=== PATIENT | female | born 1960 | race Caucasian/White ===

== ENCOUNTER 2018-07-06 14:30 | Outpatient (CLI) | payer OTHER | END 2018-07-06 14:31 | disposition home or self-care (01) | LOC: BICMAMMO 14:30 | PROVIDERS: ATTEND Internal Medicine | DX: Z12.31 Encounter for screening mammogram for malignant neoplasm of breast (principal); N63.10 Unspecified lump in the right breast, unspecified quadrant | CPT/HCPCS: 77063; 77067 ==

== ENCOUNTER 2018-07-09 09:51 | Outpatient (CLI) | payer OTHER ==
--- NOTE | 2018-07-09 11:25 | ULT ---
RIGHT BREAST ULTRASOUND: Date: 07/09/18 HISTORY: Abnormal mammogram of 07/06/18. FINDINGS: Sonographic evaluation of the right upper outer breast demonstrates a 3.0 cm hypoechoic lesion withou t shadowing between the 10 and 11 o'clock positions of the right breast, likely corresponding to the mammographic abnormality. IMPRESSION: BIRADS Category 3 - Probably benign findings. A follow-up right diagnostic mammogram and right breast ultrasound is recommended in 6 months. The facility will notify patient of need for additional imaging services. POS: OFF
== END 2018-07-09 09:52 | disposition home or self-care (01) ==
LOC: BICULT 09:51
PROVIDERS: ATTEND Internal Medicine
DX: N63.10 Unspecified lump in the right breast, unspecified quadrant (principal)

== ENCOUNTER 2019-02-13 08:44 | Outpatient (CLI) | payer OTHER ==
--- NOTE | 2019-02-13 09:34 | MMO ---
Right Breast MAMMO Unilat Diag [facility]. CLINICAL HISTORY: Patient is 58 years old and is seen for follow-up at short-interval from prior study. The patient has no family history of breast cancer. The patient has no personal history of cancer. VIEWS: The views performed were: right craniocaudal with tomosynthesis; right mediolateral oblique with tomosynthesis; and right mediolateral with tomosynthesis. FILMS COMPARED: The present examination has been compared to prior imaging studies performed at [facility] on 03/06/2009, 07/31/2015, 07/06/2018 and 02/13/2019. MAMMOGRAM FINDINGS: There are scattered fibroglandular densities. There are benign appearing calcifications in the right breast. The nodule in the right upper outer breast is again seen and is a cyst on US. There are no suspicious masses, suspicious calcifications, or new areas of architectural distortion. IMPRESSION: THERE IS NO MAMMOGRAPHIC EVIDENCE OF MALIGNANCY. A ROUTINE FOLLOW-UP MAMMOGRAM IN 5 MONTHS IS RECOMMENDED. THE RESULTS OF THIS EXAM WERE SENT TO THE PATIENT. ACR BI-RADS Category 2 - Benign finding MAMMOGRAPHY NOTE: 1. A negative mammogram report should not delay a biopsy if a dominant of clinically suspicious mass is present. 2. Approximately 10% to 15% of breast cancers are not detected by mammography. 3. Adenosis and dense breasts may obscure an underlying neoplasm. Reported by: SUSANNE GARCIA MD Electonically Signed: [id number]
--- NOTE | 2019-02-13 11:22 | ULT ---
RIGHT BREAST ULTRASOUND: HISTORY: Followup right breast nodule. FINDINGS: Correlation is made with the mammogram of today and comparison made with the ultrasound of 07/09/2018 . Sonographic evaluation of the right upper outer breast demonstrates a 5 mm anechoic lesion with poste rior enhancement within the 10 and 11 o'clock positions consistent with cysts. IMPRESSION: BIRADS category 2 - benign findings. Return to annual mammographic screening due in June 2019. POS: OFF
== END 2019-02-13 08:45 | disposition home or self-care (01) ==
LOC: BICMAMMO 08:44
PROVIDERS: ATTEND Internal Medicine
DX: R92.8 Other abnormal and inconclusive findings on diagnostic imaging of breast (principal)
CPT/HCPCS: G0279

== ENCOUNTER 2020-08-19 13:21 | Outpatient (CLI) | payer BC ==
--- NOTE | 2020-08-19 14:00 | MMO ---
Bilateral MAMMO Bilat Screen [facility]. CLINICAL HISTORY: Patient is 59 years old and is seen for screening. The patient has no family history of breast cancer. The patient has no personal history of cancer. VIEWS: The views performed were: bilateral craniocaudal with tomosynthesis and bilateral mediolateral oblique with tomosynthesis. FILMS COMPARED: The present examination has been compared to prior imaging studies performed at [facility] on 07/31/2015, 07/06/2018 and 02/13/2019. This study has been interpreted with the assistance of computer-aided detection. MAMMOGRAM FINDINGS: There are scattered fibroglandular densities. Benign calcifications are noted bilaterally. There are no suspicious masses, suspicious calcifications, or new areas of architectural distortion. IMPRESSION: THERE IS NO MAMMOGRAPHIC EVIDENCE OF MALIGNANCY. A ROUTINE FOLLOW-UP MAMMOGRAM IN 1 YEAR IS RECOMMENDED. THE RESULTS OF THIS EXAM WERE SENT TO THE PATIENT. ACR BI-RADS Category 2 - Benign finding MAMMOGRAPHY NOTE: 1. A negative mammogram report should not delay a biopsy if a dominant of clinically suspicious mass is present. 2. Approximately 10% to 15% of breast cancers are not detected by mammography. 3. Adenosis and dense breasts may obscure an underlying neoplasm. Reported by: SUSANNE GARCIA MD Electonically Signed: [id number]
== END 2020-08-19 13:22 | disposition home or self-care (01) ==
LOC: BICMAMMO 13:21
PROVIDERS: ATTEND Internal Medicine
DX: Z12.31 Encounter for screening mammogram for malignant neoplasm of breast (principal)
CPT/HCPCS: 77063; 77067

== ENCOUNTER 2021-07-03 10:16 | Inpatient (IN) | payer BC ==
[2021-07-03] MEDS ORDERED: Cyclobenzaprine 10 MG TAB ONE (10:58)
[2021-07-03] MEDS ORDERED: Ketorolac Tromethamine 30 MG/ML VIAL ONE (10:58)
[2021-07-03] MEDS ORDERED: Diazepam 10 MG/2 ML SYRINGE ONE (11:47)
[2021-07-03] MEDS ORDERED: Dexamethasone 10 MG/ML VIAL ONE (11:47)
[2021-07-03] MEDS ORDERED: Diazepam 5 MG TAB ONE (11:48)
[2021-07-03] MEDS ORDERED: Morphine 4 MG/ML VIAL ONE (12:54)
[2021-07-03] MEDS ORDERED: Ketamine 50 MG/ML (10ML VIAL) ONE (13:50)
[2021-07-03] MEDS: HYDROcodone/Acetaminophen 5/325 mg Tablet PO PRN (19:17)
[2021-07-03] MEDS: Pregabalin 50 MG CAP PO SCH (19:53)
[2021-07-03] MEDS: hydrALAZINE 20 MG/ML VIAL SLOW IVP PRN (19:53)
[2021-07-03] MEDS: Morphine 4 MG/ML VIAL SLOW IVP PRN ×2 (19:55→22:12)
[2021-07-03] MEDS: Methocarbamol 500 MG TAB PO PRN (22:29)
[2021-07-03 23:30] LABS: SARS-CoV-2 PCR by NAA Not Detected (NotDetected)
[2021-07-04] MEDS: Morphine 4 MG/ML VIAL SLOW IVP PRN ×7 (01:08→20:54)
[2021-07-04] MEDS: HYDROcodone/Acetaminophen 5/325 mg Tablet PO PRN ×2 (01:54→08:22)
[2021-07-04] MEDS ORDERED: HYDROcodone/Acetaminophen 5/325 mg Tablet PO SCH (02:20)
[2021-07-04 05:39] LABS: #Lymphocytes 2.2 thou/uL (1.20-3.40); #Monocytes 0.5 thou/uL (0.11-0.59); #Neutrophils 4.6 thou/uL (1.40-6.50); %Basophils 0.1 % (0.0-1.0); %Eosinophils 0.2 % (0.0-10.0); %Lymphocytes 29.9 % (21.0-51.0); %Monocytes 6.9 % (0.0-10.0); %Neutrophils 62.9 % (42.0-75.0); Hemoglobin 14.2 g/dL (12.0-16.0); Mean Corpuscular HGB CONC 33.8 g/dL (32.0-36.0); Mean Corpuscular Hemoglobin 34.4 pg (27.0-31.0); Platelet Count 308 thou/uL (130-400); RBC Distribution Width 11.8 % (11.5-14.5); Red Blood Cell (RBC) Count 4.11 mill/uL (4.20-5.40); White Blood Cell (WBC) Count 7.3 thou/uL (4.8-10.8)
[2021-07-04 06:08] LABS: Anion Gap 11 mmol/L (10-20); BUN (Urea Nitrogen) 10 mg/dL (9.8-20.1); Calc. Creatinine Clearance 110 mL/min (70-130); Calcium 9.6 mg/dL (7.8-10.44); Carbon Dioxide 25 mmol/L (22-29); Chloride 105 mmol/L (98-107); Glucose 96 mg/dL (70-105); Potassium 3.9 mmol/L (3.5-5.1); Sodium 137 mmol/L (136-145)
[2021-07-04] MEDS ORDERED: ALPRAZolam 0.5 MG TAB PO PRN (08:15)
[2021-07-04] MEDS: Pregabalin 50 MG CAP PO SCH ×3 (08:16→20:53)
[2021-07-04] MEDS: FLUoxetine HCl 20 MG CAP PO SCH (08:44)
[2021-07-04] MEDS: Aripiprazole 10 MG TAB PO SCH (08:44)
[2021-07-04] MEDS ORDERED: Enoxaparin Sodium 40 MG/0.4 ML SYRINGE SC SCH (09:00)
[2021-07-04] MEDS ORDERED: methylPREDNISolone Sod Succ/PF 125 MG/2 ML VIAL IVP SCH (11:30)
[2021-07-04] MEDS: HYDROcodone/Acetaminophen 5/325 mg Tablet PO SCH ×2 (12:22→18:08)
[2021-07-04] MEDS: Ketorolac Tromethamine 30 MG/ML VIAL IVP SCH ×2 (12:24→18:11)
[2021-07-04] MEDS ORDERED: Zolpidem Tartrate 5 MG TAB PO PRN (20:00)
[2021-07-04] MEDS: Atorvastatin Calcium 10 MG TAB PO SCH (20:54)
[2021-07-05] MEDS: Ketorolac Tromethamine 30 MG/ML VIAL IVP SCH ×3 (00:09→11:09)
[2021-07-05] MEDS: HYDROcodone/Acetaminophen 5/325 mg Tablet PO SCH ×3 (00:10→11:09)
[2021-07-05] MEDS: Methocarbamol 500 MG TAB PO PRN ×2 (03:20→10:16)
[2021-07-05] MEDS: Levothyroxine Sodium 88 MCG TAB PO SCH (06:17)
[2021-07-05] MEDS: Cholecalciferol 1,000 UNITS (25 MCG) TAB PO SCH (08:30)
[2021-07-05] MEDS: Triamterene/Hydrochlorothiazide 37.5 mg/25 mg Tablet PO SCH (08:30)
[2021-07-05] MEDS: FLUoxetine HCl 20 MG CAP PO SCH (08:30)
[2021-07-05] MEDS: Pregabalin 50 MG CAP PO SCH (08:31)
[2021-07-05] MEDS: Morphine 4 MG/ML VIAL SLOW IVP PRN (08:31)
[2021-07-05] MEDS: Aripiprazole 10 MG TAB PO SCH (08:31)
[2021-07-05] MEDS ORDERED: Lidocaine 2% PF 5 ML VIAL ONE (09:43)
[2021-07-05] MEDS ORDERED: Iopamidol-M 300 61% 15 ML VIAL ONE (09:43)
[2021-07-05] MEDS ORDERED: Bupivacaine 0.25% 10 ML VIAL ONE (09:43)
[2021-07-05] MEDS: methylPREDNISolone Sod Succ/PF 125 MG/2 ML VIAL IVP SCH (11:10)
[2021-07-05] MEDS ORDERED: diphenhydrAMINE 50 MG/ML VIAL IM/IV PRN (12:45)
[2021-07-05] MEDS ORDERED: diphenhydrAMINE 25 MG CAP PO PRN (12:45)
[2021-07-05] MEDS ORDERED: Naloxone HCl 0.4 mg/ml Vial IV PRN (12:45)
[2021-07-05] MEDS ORDERED: Ondansetron PF 4 MG/2 ML Vial IVP PRN (12:45)
[2021-07-05] MEDS ORDERED: Promethazine HCl 25 MG/ML VIAL IM PRN (12:45)
[2021-07-05] MEDS ORDERED: Zolpidem Tartrate 5 MG TAB PO PRN (12:45)
[2021-07-05] MEDS ORDERED: Polyethylene Glycol 3350 17 GM Packet PO PRN (13:03)
[2021-07-05] MEDS: Acetaminophen 500 MG TAB PO SCH ×2 (13:49→17:05)
[2021-07-05] MEDS: HYDROmorphone 10 MG in Sodium Chloride 0.9% 95 ML IVPB PRN (13:49)
[2021-07-05] MEDS: ALPRAZolam 0.5 MG TAB PO PRN (13:57)
[2021-07-05] MEDS: Pregabalin 75 MG CAP PO SCH ×2 (14:55→21:13)
[2021-07-05] MEDS ORDERED: ALPRAZolam 0.5 MG TAB PO SCH (15:00)
[2021-07-05] MEDS: Atorvastatin Calcium 10 MG TAB PO SCH (21:12)
[2021-07-05] MEDS: Senokot S 8.6-50 MG TAB PO SCH (21:13)
[2021-07-06] MEDS: Acetaminophen 500 MG TAB PO SCH ×4 (00:05→17:21)
[2021-07-06] MEDS: Levothyroxine Sodium 88 MCG TAB PO SCH (05:38)
[2021-07-06] MEDS ORDERED: Sodium Bicarb 50 MEQ/50 ML Abboject 8.4% SYRINGE ONE (08:39)
[2021-07-06] MEDS: Triamterene/Hydrochlorothiazide 37.5 mg/25 mg Tablet PO SCH (08:48)
[2021-07-06] MEDS: FLUoxetine HCl 20 MG CAP PO SCH (08:48)
[2021-07-06] MEDS: Cholecalciferol 1,000 UNITS (25 MCG) TAB PO SCH (08:48)
[2021-07-06] MEDS: Aripiprazole 10 MG TAB PO SCH (08:49)
[2021-07-06] MEDS: Pregabalin 75 MG CAP PO SCH ×3 (08:49→20:51)
[2021-07-06] MEDS: Enoxaparin Sodium 40 MG/0.4 ML SYRINGE SC SCH (08:50)
[2021-07-06] MEDS: ALPRAZolam 0.5 MG TAB PO PRN ×2 (08:50→21:32)
[2021-07-06] MEDS: Senokot S 8.6-50 MG TAB PO SCH ×2 (08:51→20:44)
[2021-07-06] MEDS: methylPREDNISolone Sod Succ/PF 125 MG/2 ML VIAL IVP SCH (12:11)
[2021-07-06] MEDS: HYDROmorphone 10 MG in Sodium Chloride 0.9% 95 ML IVPB PRN (15:04)
[2021-07-06] MEDS: Atorvastatin Calcium 10 MG TAB PO SCH (20:51)
[2021-07-07] MEDS: Acetaminophen 500 MG TAB PO SCH ×3 (00:17→11:14)
[2021-07-07] MEDS: Senokot S 8.6-50 MG TAB PO SCH ×3 (03:03→20:32)
[2021-07-07] MEDS: Levothyroxine Sodium 88 MCG TAB PO SCH (05:59)
[2021-07-07] MEDS: Aripiprazole 10 MG TAB PO SCH (08:37)
[2021-07-07] MEDS: Enoxaparin Sodium 40 MG/0.4 ML SYRINGE SC SCH (08:37)
[2021-07-07] MEDS: Pregabalin 75 MG CAP PO SCH ×3 (08:38→20:32)
[2021-07-07] MEDS: FLUoxetine HCl 20 MG CAP PO SCH (08:38)
[2021-07-07] MEDS: Triamterene/Hydrochlorothiazide 37.5 mg/25 mg Tablet PO SCH (08:38)
[2021-07-07] MEDS: Cholecalciferol 1,000 UNITS (25 MCG) TAB PO SCH (08:38)
[2021-07-07] MEDS: methylPREDNISolone Sod Succ/PF 125 MG/2 ML VIAL IVP SCH (11:14)
[2021-07-07] MEDS ORDERED: HYDROcodone/Acetaminophen 10/325 mg Tablet PO PRN ×2 (15:02→15:03)
[2021-07-07] MEDS ORDERED: Fentanyl 100 MCG/2 ML VIAL SLOW IVP PRN (15:04)
[2021-07-07] MEDS: hydrALAZINE 20 MG/ML VIAL SLOW IVP PRN (15:27)
[2021-07-07] MEDS: Atorvastatin Calcium 10 MG TAB PO SCH (20:32)
[2021-07-07] MEDS: ALPRAZolam 0.5 MG TAB PO PRN (23:42)
[2021-07-08] MEDS: Levothyroxine Sodium 88 MCG TAB PO SCH (06:28)
[2021-07-08] MEDS: Aripiprazole 10 MG TAB PO SCH (08:57)
[2021-07-08] MEDS: Methocarbamol 500 MG TAB PO PRN (08:57)
[2021-07-08] MEDS: Senokot S 8.6-50 MG TAB PO SCH (08:57)
[2021-07-08] MEDS: FLUoxetine HCl 20 MG CAP PO SCH (08:58)
[2021-07-08] MEDS: Cholecalciferol 1,000 UNITS (25 MCG) TAB PO SCH (08:58)
[2021-07-08] MEDS: Pregabalin 75 MG CAP PO SCH ×2 (08:59→14:55)
[2021-07-08] MEDS ORDERED: CeleCOXIB 100 MG CAP PO SCH (09:00)
[2021-07-08] MEDS: Enoxaparin Sodium 40 MG/0.4 ML SYRINGE SC SCH (09:00)
[2021-07-08] MEDS: Triamterene/Hydrochlorothiazide 37.5 mg/25 mg Tablet PO SCH (09:00)
[2021-07-08] MEDS: methylPREDNISolone Sod Succ/PF 125 MG/2 ML VIAL IVP SCH (12:30)
[2021-07-08 16:31] VITALS: BP 157/93; TEMP 98.3
== END 2021-07-08 17:50 | disposition home or self-care (01) | DRG 552 ==
LOC: ERS 10:16 → SURG B 14:30 → OBSVTOIN 07-05 12:50
PROVIDERS: ADMIT Family Medicine; ATTEND Hospitalist
PROC: 3E0R3GC Introduction of Other Therapeutic Substance into Spinal Canal, Percutaneous Approach (ICD-10-PCS; principal; 2021-07-05)
DX: M48.061 Spinal stenosis, lumbar region without neurogenic claudication (principal); M51.16 Intervertebral disc disorders with radiculopathy, lumbar region; Z20.822 Contact with and (suspected) exposure to COVID-19; I10 Essential (primary) hypertension; E03.9 Hypothyroidism, unspecified; F41.9 Anxiety disorder, unspecified; F32.A Depression, unspecified; Z87.891 Personal history of nicotine dependence; Z79.899 Other long term (current) drug therapy
CPT/HCPCS: 36415; 72100; 80048; 85025; 96372; 96374; 96375; 96376; G0378; J0360; J1040; J1100; J1170; J1650; J1885; J2001; J2270; J2930; J3360; J3490; Q9967; S0020; U0003; U0005

== ENCOUNTER 2023-08-25 10:52 | Outpatient (CLI) | payer OTHER | END 2023-08-25 10:53 | disposition home or self-care (01) | LOC: BICRAD 10:52 | PROVIDERS: ATTEND Nurse Practitioner Family | DX: M25.511 Pain in right shoulder (principal) ==